=== PATIENT | female | born 1930 | race Caucasian/White ===

== ENCOUNTER 2016-08-15 11:03 | Inpatient (IN) | payer MEDICARE ==
[2016-08-16 16:14] VITALS: BMI 30.3
[2016-08-16 16:59] LABS: Basophils # (A) 0.1 k/uL (0-0.2); Basophils % (A) 2 %; CH 32.1; CHCM 30.9; Eosinophils # (A) 0.2 k/uL (0-0.7); Eosinophils % (A) 5 %; HCT 29.6 % (34.0-46.0); HDW 2.08; HGB 9.6 gm/dL (11.4-16.0); Luc # (Auto) 0.17; Luc % (Auto) 4; Lymphocytes # (A) 0.8 k/uL (1.0-4.8); Lymphocytes % (A) 20 %; MCH 33.8 pg (25.0-35.0); MCHC 32.5 g/dL (31.0-37.0); MCV 104.1 fL (80.0-100.0); Macrocytosis Slight; Monocytes # (A) 0.3 k/uL (0-1.0); Monocytes % (A) 8 %; Neutrophils # (A) 2.6 k/uL (1.3-7.7); Neutrophils % (A) 61 %; RBC 2.84 m/uL (3.80-5.40); RDW 11.9 % (11.5-15.5); WBC 4.2 k/uL (3.8-10.6)
[2016-08-16 17:16] LABS: Calcium 8.8 mg/dL (8.4-10.2); Potassium 4.5 mmol/L (3.5-5.1); Total Bilirubin 0.5 mg/dL (0.2-1.3)
--- NOTE | 2016-08-16 17:50 | US ---
EXAMINATION TYPE: US renals and bladder DATE OF EXAM: 08/16/2016 4:40 PM COMPARISON: US CLINICAL HISTORY: Renal failure acute. Renal failure EXAM MEASUREMENTS: Right Kidney: 9.6 x 4.1 x 3.5 cm Left Kidney: 9.6 x 4.8 x 4.3 cm Right Kidney: no hydronephrosis or masses seen at this time, inferior pole limited by overlying bowel gas Left Kidney: no hydronephrosis or masses seen at this time, limited by rib shadowing and overlying everette wel gas Bladder: not fully distended, vasquez catheter Bilateral Jets seen: no cortical medullary differentiation is maintained bilaterally. IMPRESSION: Exam is limited.
[2016-08-16] MEDS ORDERED: NITROGLYCERIN SL TABS 0.4 MG TAB SUBLINGUAL PRN (18:00)
[2016-08-16] MEDS: HEPARIN SODIUM,PORCINE 5,000 UNIT/ML 1 ML VIAL SQ SCH (18:19)
[2016-08-16] MEDS: SODIUM CHLORIDE 0.9% 1,000 ML IV SCH (18:19)
[2016-08-16] MEDS: MINOXIDIL 10 MG TAB PO SCH (20:35)
[2016-08-16] MEDS: cloNIDine HCL 0.1 MG TAB PO SCH (20:35)
[2016-08-16] MEDS: FAMOTIDINE 20 MG TAB PO SCH (20:36)
[2016-08-16] MEDS: traZODone HCL 50 MG TAB PO SCH (20:36)
[2016-08-16] MEDS: CARVEDILOL 6.25 MG TAB PO SCH (20:36)
[2016-08-16] MEDS: PRAVASTATIN SODIUM 20 MG TAB PO SCH (20:36)
[2016-08-17] MEDS: HEPARIN SODIUM,PORCINE 5,000 UNIT/ML 1 ML VIAL SQ SCH ×4 (01:31→22:58)
[2016-08-17] MEDS: LEVOTHYROXINE 75 MCG TAB PO SCH (06:03)
[2016-08-17] MEDS: SODIUM CHLORIDE 0.9% 1,000 ML IV SCH ×2 (06:04→18:04)
--- NOTE | 2016-08-17 08:14 | HP ---
DATE OF ADMISSION: CHIEF COMPLAINT: Acute onset of confusion and renal failure. HISTORY OF PRESENT ILLNESS: This 86-year-old white female was visiting her daughter in [place] and suddenly became confused and developed tremors of the upper extremities. They took her to the hospital in [facility] where she was found to have acute renal failure. She has had borderline elevation of her renal function in the past. There is no obvious etiology for this. Her renal function improved during her hospitalization, but she continued to have episodes of confusion although they were getting better too. She has had some occasional mild symptoms over the last year or so where she seemed to be confused. Her parents lived to be a very elderly age and there was no dementia. There is no history of renal failure. She does have a lot of trouble with severe hypertension, which has been difficult to control and she is on numerous medications but she has had no focal neurologic signs or symptoms. REVIEW OF SYSTEMS: She has no other symptoms including shortness of breath, abdominal pain, diarrhea, melena, hematochezia, vomiting, dysuria, hematuria, diabetes, etc. Past medical history, family history and personal and social histories are otherwise unremarkable and noncontributory. She does not smoke or drink. PHYSICAL EXAMINATION: Blood pressure 147/78 with a pulse of 85, respirations of 20. She is afebrile. GENERAL: She appeared to be well developed, well nourished, in no acute distress. Skin color is normal. Skin is warm and dry. Lymph nodes are not enlarged. Head, ears, eyes, nose, mouth, and throat were normal. Neck veins not distended. Thyroid is not enlarged. Chest is clear. Cardiac exam is normal. ABDOMEN: Soft, nontender. The left breast is absent and she has lymphedema of the left arm. Lower extremities are normal. Neurologically, she seems to be intact, but she is a little confused. IMPRESSION: 1. Acute onset of renal failure, improving, etiology unknown. 2. Delirium. 3. 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 4. Essential hypertension. 5. Status post left mastectomy. PLAN: 1. Bed rest. 2. IV fluids. 3. Rehydrate. 4. Neurology consult. 5. Carotid duplex imaging. 6. MRA. 7. Echocardiogram to assess her aortic valve, which has been replaced. 8. Physical therapy and discharge planning for rehab.
[2016-08-17] MEDS: CARVEDILOL 6.25 MG TAB PO SCH ×2 (08:30→17:39)
[2016-08-17] MEDS: hydrALAZINE HCL 50 MG TAB PO SCH (08:30)
[2016-08-17] MEDS: amLODIPine 5 MG TAB PO SCH (08:31)
[2016-08-17] MEDS: MULTIVITAMINS, THERA 1 EACH TAB PO SCH (08:32)
[2016-08-17] MEDS ORDERED: VALSARTAN 160 MG TAB PO SCH (09:00)
[2016-08-17] MEDS: BUMETANIDE 0.5 MG TABLET PO SCH (09:11)
[2016-08-17 10:16] LABS: Calcium 8.9 mg/dL (8.4-10.2); Potassium 4.6 mmol/L (3.5-5.1); Total Bilirubin 0.6 mg/dL (0.2-1.3); Total Protein 6.2 g/dL (6.3-8.2)
[2016-08-17 10:49] LABS: Appearance,Urine Cloudy (Clear); Bacteria,Urine Occasional /hpf; Bilirubin,Urine Negative (Negative); Glucose,Urine (UA) Negative (Negative); Ketones,Urine Negative (Negative); Leukocyte Esterase,Urine Large (Negative); Mucus,Urine Rare /hpf; Nitrite,Urine Negative (Negative); PH, Urine 5.5 (5.0-8.0); Particle Count 6309; Protein,Urine Trace (Negative); Squamous Epithelial Cell,Urine 12 /hpf (0-4); UA Billing (MACRO vs. MICRO) MICRO; Urobilinogen,Urine <2.0 mg/dL (<2.0); WBC,Urine 70 /hpf (0-5)
[2016-08-17 10:53] LABS: Cholesterol 118 mg/dL (<200); HDL Cholesterol 42 mg/dL (40-60); Triglycerides 108 mg/dL (<150)
--- NOTE | 2016-08-17 11:23 | US ---
EXAMINATION TYPE: US carotid duplex BILAT DATE OF EXAM: 08/17/2016 11:04 AM COMPARISON: NONE CLINICAL HISTORY: Stenosis. confusion EXAM MEASUREMENTS: RIGHT: Peak Systolic Velocity (PSV) cm/sec ----- Right CCA: 107.5 ----- Right ICA: 124.2 ----- Right ECA: 228.3 ICA/CCA ratio: 1.2 RIGHT: End Diastole cm/sec ----- Right CCA: 14.4 ----- Right ICA: 19.2 ----- Right ECA: 0.0 LEFT: Peak Systolic Velocity (PSV) cm/sec ----- Left CCA: 94.3 ----- Left ICA: 192.1 ----- Left ECA: 279.0 ICA/CCA ratio: 2.0 LEFT: End Diastole cm/sec ----- Left CCA: 12.8 ----- Left ICA: 30.4 ----- Left ECA: 0.0 VERTEBRALS (direction of flow): Right Vertebral: Antegrade Left Vertebral: Antegrade Extensive shadowing plaque causing elevated velocities in the right ECA and left ECA & ICA. IMPRESSION: 1. Stenosis of the left carotid most notably at the left carotid bulb and proximal internal carotid a rtery of 50-69% 2. Stenosis at the right carotid bulb 50-69%, to a lesser degree than the left carotid system.
--- NOTE | 2016-08-17 14:22 | PN ---
CHIEF COMPLAINT: Renal failure and mental status changes. HISTORY OF PRESENT ILLNESS: This lady is stable since yesterday. She is not complaining of anything new. PHYSICAL EXAM: She is slightly pale. HEENT: Normal. The chest is clear. Cardiac exam is normal. IMPRESSION: 1. Mental status change. 2. Delirium. 3. 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 4. Hypertension. 5. Renal failure, resolving. PLAN: 1. Carotid duplex imaging. 2. Neurology consult. 3. MRI. 4. MRA. 5. Await neurology evaluation.
--- NOTE | 2016-08-17 14:38 | CONS ---
DATE OF CONSULTATION: August 17, 2016. REASON FOR CONSULTATION: Renal failure. HISTORY OF PRESENT ILLNESS: Patient is an 86-year-old female who was transferred from the hospital in [facility]. Patient lives in [place]. She was visiting her daughter in [place] and was noted to have weakness and jerky movements of her upper extremities. The patient was also more confused according to her daughter. She was taken to the hospital where she was noted to have significant renal failure with creatinine as high as about 6 mg/dL according to the daughter. The patient was maintained on IV fluids and her creatinine is now at about 3 mg/dL. There is no prior history of kidney diseases. Her creatinine is actually improved to 2.6 today. Patient denied the use of any nonsteroidal anti-inflammatory agents prior to admission. She did not have any diarrhea, nausea and vomiting. She however did have decreased intake. Patient also has hypertension, which has been uncontrolled. She is currently maintained on five antihypertensive medications including angiotensin receptor blockers, 2 alpha blockers in the form of hydralazine and minoxidil along with clonidine and Coreg and Norvasc. 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 She does have a history of coronary artery disease, status post coronary artery bypass surgery. PAST MEDICAL HISTORY: Hypertension, coronary artery disease, osteoarthritis. SOCIAL HISTORY: Negative for smoking, drug abuse or alcohol abuse. Medications at home included: Diovan, hydralazine, minoxidil, Norvasc, clonidine, Coreg, Desyrel, Synthroid, Bumex, Pravachol, multivitamins. REVIEW OF SYSTEMS: As per HPI. Other systems negative. On examination, the patient is currently comfortable, awake, alert, oriented x3. She is not in any acute distress. Blood pressure is 133/53, heart rate 75 per minute. She is afebrile. Examination of the heart S1 and S2. Examination of the lungs: Bilateral breath sounds are heard. Abdomen is soft, nontender. Examination of lower extremities shows no evidence of edema. [employer] exam is grossly intact. Patient is moving all 4 extremities. No jerky movements are noted. Labs show sodium 137, potassium 4.6, chloride 110, CO2 is 18, BUN 66, serum creatinine 2.6. Hemoglobin 9.6 g/dL. ASSESSMENT: 1. Acute kidney injury; appears to be most likely acute tubular necrosis, currently significantly improved with serum creatinine down from 6 when patient was initially admitted to the hospital in [facility]. It is now down to 2.61. Patient has been maintained on IV fluids. She, however, continues with Diovan, the dose of which I decreased to about 80 mg daily. Since her renal function continues to improve, we may continue with the Diovan. A urinalysis has been ordered and an ultrasound was done which showed no evidence of obstructive uropathy. 2. Hypertension, currently controlled; however, the patient is maintained on 6 blood pressure medications prior to admission. She may have underlying resistant hypertension and work-up will be done for other secondary causes. There is no history of hypokalemia. He is maintained on 2 alpha blockers in the form of hydralazine and minoxidil and hopefully we can discontinue the hydralazine down the road since it is only at 50 mg daily. 3. Myoclonic jerks secondary to renal failure/uremia currently resolved with improving renal function. PLAN: Continue IV fluids. May continue Diovan for now. Follow up as outpatient. Will work-up for secondary causes of hypertension as outpatient.
[2016-08-17] MEDS: LEVOFLOXACIN 250 MG TAB PO SCH (16:17)
[2016-08-17] MEDS ORDERED: FUROSEMIDE 10 MG/ML 10 ML VIAL IV STA (18:00)
[2016-08-17] MEDS ORDERED: ALBUTEROL NEBULIZED 2.5 MG/3 ML INHALATION PRN (18:01)
--- NOTE | 2016-08-17 18:21 | P.CNNES ---
History of Present Illness Consult date: 08/17/16 Reason for Consult: Patient being evaluated for acute delirium and confusion. History of Present Illness: This patient is a pleasant 86-year-old right-handed white female who was visiting her daughter in [place]. Apparently yesterday she was noted by her daughter is having change in mentation as well as jerky movements of the upper extremities. She was taken to a hospital in [place] where she was evaluated. Apparently her laboratory testing revealed her to have evidence of acute renal failure. Her serum creatinine was high at 6.0. She was started on some fluids and then was discharged and was admitted to [facility] yesterday for further ongoing management and treatment. The patient was admitted through the emergency room. She did undergo a renal ultrasound which was nondiagnostic. No evidence of renal stones or hydronephrosis. Patient had repeat laboratory testing today and shows that her creatinine is much improved at 2.6 today. Nephrology has been consulted for further evaluation and treatment. Patient does have a history of essential hypertension and has been on 2 antihypertensive medications. According to the patient blood pressure has been up and down. She does have a history of coronary artery disease and has undergone coronary artery bypass surgery in the past as well. The patient denies any previous history of seizures or head trauma. Her recent jerking movements were very isolated and she has not had that since admission to the hospital. According to the patient she has noted some shakiness in her hands which seems to come and go. This is been present for the last few weeks. Her primary care physician Dr. White has admitted her and is now ordered for MRI of the brain and MRA for further evaluation. Patient does have symptoms of mild delirium which seems to be improving. This may be more related to a diffuse metabolic encephalopathy from renal failure. We will await her neurodiagnostic imaging results and we'll give further recommendations at that time. Her overall prognosis at this time remains guarded. Review of Systems Constitutional: Denies chills, Denies fever Eyes: denies blurred vision, denies pain Ears, nose, mouth and throat: Denies headache, Denies sore throat Cardiovascular: Denies chest pain, Denies shortness of breath Respiratory: Denies cough Gastrointestinal: Denies abdominal pain, Denies diarrhea, Denies nausea, Denies vomiting Genitourinary: Denies dysuria, Denies hematuria Musculoskeletal: Denies myalgias Integumentary: Denies pruritus, Denies rash Neurological: Reports change in mentation, Reports change in speech, Reports convulsions, Denies numbness, Denies weakness Psychiatric: Reports confusion, Denies anxiety, Denies depression Endocrine: Denies fatigue, Denies weight change Past Medical History Past Medical History: Cancer, Heart Failure, Hyperlipidemia, Hypertension Additional Past Medical History / Comment(s): 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 HYPOTHYROID History of Any Multi-Drug Resistant Organisms: None Reported Past Surgical History: Adenoidectomy, Appendectomy, Bladder Surgery, Cholecystectomy, Coronary Bypass/CABG, Hysterectomy, Tonsillectomy Additional Past Surgical History / Comment(s): AORTIC VALVE REPLACEMENT 2014 Past Anesthesia/Blood Transfusion Reactions: Postoperative Nausea & Vomiting ( PONV) Past Psychological History: No Psychological Hx Reported Smoking Status: Never smoker - Past Family History Sister(s) Family Medical History: Cancer Additional Family Medical History / Comment(s): MANY SIBLINGS HAVE AUTOIMMUNE DISORDERS(LUPUS)AND THYROID Medications and Allergies Home Medications Medication Instructions Recorded Confirmed Type Bumetanide [BUMEX] 0.5 mg PO DAILY 08/16/16 08/16/16 History Carvedilol [Coreg] 6.25 mg PO BID 08/16/16 08/16/16 History Levothyroxine Sodium [Synthroid] 150 mcg PO DAILY 08/16/16 08/16/16 History Minoxidil [Loniten] 10 mg PO HS 08/16/16 08/16/16 History Multivitamins, Thera [Multivitamin 1 tab PO DAILY 08/16/16 08/16/16 History (formulary)] Nitroglycerin Sl Tabs [Nitrostat] 0.4 mg SUBLINGUAL Q5M PRN 08/16/16 08/16/16 History Pravastatin Sodium [Pravachol] 10 mg PO HS 08/16/16 08/16/16 History Valsartan [Diovan] 320 mg PO DAILY 08/16/16 08/16/16 History Zopiclone 7.5 mg PO HS 08/16/16 08/16/16 History amLODIPine BESYLATE [Norvasc] 5 mg PO DAILY 08/16/16 08/16/16 History cloNIDine HCL [Catapres] 0.3 mg PO HS 08/16/16 08/16/16 History hydrALAZINE HCL [Apresoline] 100 mg PO BID 08/16/16 08/16/16 History traZODone HCL [Desyrel] 50 mg PO HS 08/16/16 08/16/16 History Allergies Allergy/AdvReac Type Severity Reaction Status Date / Time hydromorphone [From Dilaudid] AdvReac Nausea & Verified 08/16/16 16:25 Vomiting Physical Examination - Vital Signs Vital Signs: Vital Signs Temp Pulse Resp BP Pulse Ox 08/17/16 15:00 97.0 F L 79 20 120/48 96 08/17/16 07:00 97.9 F 75 20 133/53 95 08/16/16 23:00 97.1 F L 83 18 140/54 96 08/16/16 15:37 97.8 F 75 16 134/51 94 L Intake and Output 08/17/16 08/17/16 08/17/16 06:59 14:59 22:59 Intake Total 360 Balance 360 Intake: Oral 360 Other: Voiding Method Toilet Toilet Bedside Commode # Voids 2 2 # Bowel Movements 0 0 - Constitutional General appearance: average body habitus, cooperative - EENT EENT: PERRL, mucous membranes moist - Respiratory Respiratory: lungs clear, normal breath sounds - Cardiovascular Cardiovascular: regular rate, normal S1, normal S2 Extremities: no peripheral edema bilaterally - Gastrointestinal Gastrointestinal: normoactive bowel sounds - Integumentary Integumentary: normal - Neurologic Detailed sensory examination: intact Reflex and gait examination: intact Reflexes: 1+: ankle, bicep, knee, tricep - Musculoskeletal Musculoskeletal: no pain - Psychiatric Psychiatric: mood/affect appropriate, cooperative Results - Laboratory Findings CBC and BMP: 08/16/16 15:52 08/17/16 08:40 Abnormal Lab Findings: Abnormal Labs 08/16/16 08/16/16 08/17/16 15:52 15:52 08:40 RBC 2.84 L Hgb 9.6 L Hct 29.6 L MCV 104.1 H Plt Count 102 L Lymphocytes # 0.8 L Sodium 135 L Chloride 110 H Carbon Dioxide 20 L 18 L BUN 71 H 66 H Creatinine 3.35 H 2.61 H Glucose 103 H 100 H Alkaline Phosphatase 36 L 34 L Total Protein 6.0 L 6.2 L Urine Appearance Urine Protein Ur Leukocyte Esterase Urine WBC Ur Squamous Epith Cells Urine Bacteria Urine Mucus 08/17/16 09:20 RBC Hgb Hct MCV Plt Count Lymphocytes # Sodium Chloride Carbon Dioxide BUN Creatinine Glucose Alkaline Phosphatase Total Protein Urine Appearance Cloudy H Urine Protein Trace H Ur Leukocyte Esterase Large H Urine WBC 70 H Ur Squamous Epith Cells 12 H Urine Bacteria Occasional H Urine Mucus Rare H Assessment and Plan (1) Acute encephalopathy Status: Acute Code(s): G93.40 - ENCEPHALOPATHY, UNSPECIFIED (2) Delirium Status: Acute Code(s): R41.0 - DISORIENTATION, UNSPECIFIED (3) Essential hypertension Status: Acute Code(s): I10 - ESSENTIAL (PRIMARY) HYPERTENSION (4) Acute renal failure Status: Acute Code(s): N17.9 - ACUTE KIDNEY FAILURE, UNSPECIFIED Plan: This patient is a pleasant 86-year-old female being evaluated for recent episode of acute renal failure and confusion. Patient was visiting her daughter in [place] and had sudden onset of jerky movements of her upper extremities. she was taken to the local hospital in [place] and was seen in the ER. She was found to have evidence of acute renal failure with a serum creatinine of 6.0. She was advised to follow-up here locally if she lives in [place]. She was subsequently admitted to hospital yesterday for treatment of acute renal failure. She did undergo a computed tomography scan of the brain in [place] which revealed only diffuse ischemic changes. No evidence of acute stroke or hemorrhage. Her blood pressure has been elevated and she has clear evidence of a diffuse metabolic encephalopathy due to renal failure. Repeat serum creatinine today shows an improvement with today's total creatinine of 2.61. Patient is being scheduled for further testing. We would recommend a routine EEG to rule out any possibility of seizure disorder for this patient. Her jerky movements are more likely myoclonia secondary to her renal failure. We will obtain a routine EEG performed further assessment. Her overall prognosis at this time remains guarded. Time with Patient: Greater than 30
--- NOTE | 2016-08-17 19:29 | XR ---
EXAMINATION TYPE: XR chest 2V DATE OF EXAM: 08/17/2016 7:00 PM COMPARISON: Prior chest x-ray 17 November 2009 HISTORY: Shortness of breath and wheezing TECHNIQUE: Frontal and lateral views of the chest are obtained. FINDINGS: There is some blunting of the posterior costophrenic angles. Prominent lung volumes sugges t underlying COPD. The patient is rotated. Patient is post median sternotomy and the heart is enlarge d. Interstitium and central vascularity are prominent. No evident pneumothorax. IMPRESSION: Correlate for congestive heart failure. Follow-up is recommended.
[2016-08-17] MEDS: ALBUTEROL NEBULIZED 2.5 MG/3 ML INHALATION SCH (19:41)
--- NOTE | 2016-08-17 20:51 | PN ---
DATE OF SERVICE: 08/17/2016 CHIEF COMPLAINT: Congestion and shortness of breath. HISTORY OF PRESENT ILLNESS: This lady developed some shortness of breath this afternoon and she is slightly congested. She has had no fever or chills. On physical examination she has occasional rhonchi and rales scattered throughout. IMPRESSION: Fluid overload? PLAN: 1. Decrease IV to keep open. 2. Lasix 80 mg IV push x1. 3. Updrafts with albuterol. 4. Chest x-ray.
[2016-08-17] MEDS: cloNIDine HCL 0.1 MG TAB PO SCH (22:00)
[2016-08-17] MEDS: MINOXIDIL 10 MG TAB PO SCH (22:00)
[2016-08-17] MEDS: FAMOTIDINE 20 MG TAB PO SCH (22:00)
[2016-08-17] MEDS: traZODone HCL 50 MG TAB PO SCH (22:01)
[2016-08-17] MEDS: PRAVASTATIN SODIUM 20 MG TAB PO SCH (22:57)
[2016-08-18] MEDS: LEVOTHYROXINE 75 MCG TAB PO SCH (06:34)
[2016-08-18] MEDS: CARVEDILOL 6.25 MG TAB PO SCH ×2 (08:02→17:55)
[2016-08-18] MEDS: HEPARIN SODIUM,PORCINE 5,000 UNIT/ML 1 ML VIAL SQ SCH ×3 (08:02→23:31)
[2016-08-18] MEDS: hydrALAZINE HCL 50 MG TAB PO SCH (08:02)
[2016-08-18] MEDS: VALSARTAN 80 MG TAB PO SCH (08:03)
[2016-08-18] MEDS: amLODIPine 5 MG TAB PO SCH (08:03)
[2016-08-18] MEDS: BUMETANIDE 0.5 MG TABLET PO SCH (08:03)
[2016-08-18] MEDS: MULTIVITAMINS, THERA 1 EACH TAB PO SCH (08:03)
[2016-08-18] MEDS ORDERED: NAPROXEN 250 MG TAB PO PRN (08:45)
[2016-08-18] MEDS: ALBUTEROL NEBULIZED 2.5 MG/3 ML INHALATION SCH ×4 (09:03→20:37)
[2016-08-18 09:14] LABS: Calcium 8.9 mg/dL (8.4-10.2); Potassium 3.7 mmol/L (3.5-5.1); Total Bilirubin 0.6 mg/dL (0.2-1.3); Total Protein 6.4 g/dL (6.3-8.2)
--- NOTE | 2016-08-18 10:04 | P.PN ---
Subjective Patient is seen in follow-up for acute kidney injury. Her creatinine in December 2014 was 0.8. He was recently elevated at 6 was she was in [place] and was transferred to [facility]. Her creatinine here was 3.35 and is down to 2.4 today. She was initially on IV fluids but became short of breath yesterday and fluids were discontinued. She did receive a dose of Lasix 80 mg IV once yesterday and is now maintained on Bumex 0.5 mg daily. She denies chest pain or shortness of breath. Oral intake is fair but improving. Admits to good urine output. Denies chest pain or shortness of breath. Vital signs are stable. General: The patient appeared well nourished and normally developed. HEENT: Head exam is unremarkable. Neck is without jugular venous distension. LUNGS: Lungs are clear to auscultation and percussion. Breath sounds decreased. HEART: Rate and Rhythm are regular. First and second heart sounds normal. No murmurs, rubs or gallops. ABDOMEN: Abdominal exam reveals normal bowel sounds. Non-tender and non- distended. No evidence of peritonitis. EXTREMITITES: No clubbing, cyanosis, or edema. Objective - Vital Signs Vital signs: Vital Signs Temp 98.5 F 08/18/16 07:00 Pulse 84 08/18/16 09:13 Resp 16 08/18/16 07:00 BP 160/69 08/18/16 07:00 Pulse Ox 94 L 08/18/16 07:00 Intake & Output 08/17/16 08/18/16 08/18/16 18:59 06:59 18:59 Intake Total 360 Balance 360 Weight 75.189 kg Intake: Oral 360 Other: Voiding Method Toilet Toilet Bedside Commode Bedside Commode # Voids 2 5 # Bowel Movements 0 1 - Labs CBC & Chem 7: 08/16/16 15:52 08/18/16 08:05 Labs: Abnormal Lab Results - Last 24 Hours (Table) 08/17/16 08/17/16 08/18/16 Range/Units 08:40 09:20 08:05 Chloride 110 H (98-107) mmol/L Carbon Dioxide 18 L 20 L (22-30) mmol/L BUN 66 H 51 H (7-17) mg/dL Creatinine 2.61 H 2.24 H (0.52-1.04) mg/dL Glucose 100 H 124 H (74-99) mg/dL Alkaline Phosphatase 34 L (38-126) U/L Total Protein 6.2 L (6.3-8.2) g/dL Urine Appearance Cloudy H (Clear) Urine Protein Trace H (Negative) Ur Leukocyte Esterase Large H (Negative) Urine WBC 70 H (0-5) /hpf Ur Squamous Epith Cells 12 H (0-4) /hpf Urine Bacteria Occasional H (None) /hpf Urine Mucus Rare H (None) /hpf Microbiology - Last 24 Hours (Table) 08/17/16 09:20 Urine Culture - Preliminary Urine,Clean Catch Assessment and Plan Plan: Assessment: #1. Nonoliguric acute kidney injury mostly prerenal in nature related to poor oral intake. Improving. Creatinine on the 2.24 today. Urinalysis appears to be quite benign. No evidence of hydronephrosis noted on renal ultrasound. #2. Metabolic acidosis secondary to acute kidney injury and IV fluids. Improved. #3. Hypertension. Patient maintained on multiple antihypertensives as an outpatient. #4. Encephalopathy related to uremia. Resolved. Plan: Fluids have been discontinued. Continue current antihypertensives. Wean hydralazine once blood pressure stabilizes. Repeat electrolytes in the morning. If renal function worsens, will need to back off on diuretics.
--- NOTE | 2016-08-18 11:59 | MR ---
EXAMINATION TYPE: MR angio head wo con DATE OF EXAM: 08/18/2016 11:46 AM COMPARISON: NONE HISTORY: Headaches, confusion TECHNIQUE: Time of flight images focusing on the [place] were performed without contrast. FINDINGS: Internal carotid arteries, vertebrobasilar system are patent. There is no evident aneurysm. No vascular malformation or significant vasculitic change. Ophthalmic arteries are patent. No eviden t dissection. IMPRESSION: Normal [place] MRA
--- NOTE | 2016-08-18 12:08 | MR ---
MR brain without contrast HISTORY: Confusion, headache Multiplanar multisequence imaging through the brain and correlated to prior exam 08 January 2015 There is no restricted diffusion to suggest subacute ischemia. Cortical atrophy is again noted. The c orpus callosum, pituitary, cervical medullary junction, cerebellopontine angles are stable. Periventr icular white matter hyperintensity on inversion recovery and T2-weighted sequences shows a similar ap pearance, scattered and confluent areas of hyperintensity are present bilaterally. There is no hemorr lexx or hydrocephalus. The orbits show symmetric appearance. Mild inflammatory change present within the maxillary sinus on the right, ethmoid air cells. Mild inflammatory change suspected in the mastoi d air cells on the right. There are normal vascular flow voids. IMPRESSION: Essentially stable exam. Age-related changes of atrophy and probable chronic small vessel ischemia.
--- NOTE | 2016-08-18 13:19 | PN ---
CHIEF COMPLAINT: Renal failure and mental status changes. HISTORY OF PRESENT ILLNESS: This lady is doing better today. Breathing is improved. This is probably in response to the Lasix. She is also getting updrafts. MRI and MRA have been ordered. She has been seen by Neurology. PHYSICAL EXAM: She seems to be awake and alert and fairly well oriented. Chest is clear. Cardiac exam is unremarkable with her usual murmur. ABDOMEN: Soft, nontender. IMPRESSION: 1. Acute renal failure, resolving. 2. Congestive heart failure, new onset. 3. Delirium. 4. Mild dementia. 5. Hypertension. PLAN: 1. Continue with updrafts. 2. Continue with workup and await pending studies.
[2016-08-18] MEDS: LEVOFLOXACIN 250 MG TAB PO SCH (15:11)
[2016-08-18] MEDS: PRAVASTATIN SODIUM 20 MG TAB PO SCH (20:22)
[2016-08-18] MEDS: MINOXIDIL 10 MG TAB PO SCH (20:22)
[2016-08-18] MEDS: cloNIDine HCL 0.1 MG TAB PO SCH (20:22)
[2016-08-18] MEDS: FAMOTIDINE 20 MG TAB PO SCH (20:22)
[2016-08-18] MEDS: traZODone HCL 50 MG TAB PO SCH (20:23)
[2016-08-19] MEDS: LEVOTHYROXINE 75 MCG TAB PO SCH (06:35)
[2016-08-19] MEDS: HEPARIN SODIUM,PORCINE 5,000 UNIT/ML 1 ML VIAL SQ SCH ×3 (08:03→23:26)
[2016-08-19] MEDS: CARVEDILOL 6.25 MG TAB PO SCH ×2 (08:03→18:15)
[2016-08-19] MEDS: BUMETANIDE 0.5 MG TABLET PO SCH (08:04)
[2016-08-19] MEDS: hydrALAZINE HCL 50 MG TAB PO SCH (08:04)
[2016-08-19] MEDS: VALSARTAN 80 MG TAB PO SCH (08:04)
[2016-08-19] MEDS: amLODIPine 5 MG TAB PO SCH (08:04)
[2016-08-19] MEDS: MULTIVITAMINS, THERA 1 EACH TAB PO SCH (08:05)
--- NOTE | 2016-08-19 09:23 | P.PN ---
Subjective Patient is seen in follow-up for acute kidney injury. Her creatinine in December 2014 was 0.8. He was recently elevated at 6 was she was in [place] and was transferred to [facility]. Her creatinine here was 3.35 and is down to 2.24 as of yesterday. She was initially on IV fluids but became short of breath Michele night and fluids were discontinued. She did receive a dose of Lasix 80 mg IV once and is now maintained on Bumex 0.5 mg daily. She denies chest pain or shortness of breath. Oral intake is fair but improving. Admits to good urine output. Denies chest pain or shortness of breath. Her blood pressures have been quite labile with systolic blood pressure ranging from 111-170. Vital signs are stable. General: The patient appeared well nourished and normally developed. HEENT: Head exam is unremarkable. Neck is without jugular venous distension. LUNGS: Lungs are clear to auscultation and percussion. Breath sounds decreased. HEART: Rate and Rhythm are regular. First and second heart sounds normal. No murmurs, rubs or gallops. ABDOMEN: Abdominal exam reveals normal bowel sounds. Non-tender and non- distended. No evidence of peritonitis. EXTREMITITES: No clubbing, cyanosis, or edema. Objective - Vital Signs Vital signs: Vital Signs Temp 98.6 F 08/19/16 07:00 Pulse 89 08/19/16 07:00 Resp 20 08/19/16 07:00 BP 171/72 08/19/16 07:00 Pulse Ox 96 08/19/16 07:00 Intake & Output 08/18/16 08/19/16 08/19/16 18:59 06:59 18:59 Intake Total 300 Balance 300 Weight 75.189 kg 75.5 kg Intake: Oral 300 Other: Voiding Method Toilet Toilet Bedside Commode Bedside Commode # Voids 3 2 # Bowel Movements 1 - Labs CBC & Chem 7: 08/16/16 15:52 08/18/16 08:05 Labs: Microbiology - Last 24 Hours (Table) 08/17/16 09:20 Urine Culture - Preliminary Urine,Clean Catch Group D Enterococcus Assessment and Plan Plan: Assessment: #1. Nonoliguric acute kidney injury mostly prerenal in nature related to poor oral intake. Improving. Creatinine 2.24 as of yesterday. Urinalysis appears to be quite benign. No evidence of hydronephrosis noted on renal ultrasound. #2. Metabolic acidosis secondary to acute kidney injury and IV fluids. Improved. #3. Hypertension. Patient maintained on multiple antihypertensives as an outpatient. #4. Encephalopathy related to uremia. Resolved. Plan: Fluids have been discontinued. Encourage oral intake. Continue current antihypertensives. Wean hydralazine once blood pressure stabilizes. Follow-up renin and aldosterone levels. Repeat electrolytes in the morning. If renal function worsens, will need to back off on diuretics.
[2016-08-19] MEDS: ALBUTEROL NEBULIZED 2.5 MG/3 ML INHALATION SCH ×4 (09:49→19:45)
[2016-08-19 10:23] LABS: Calcium 8.9 mg/dL (8.4-10.2); Potassium 3.9 mmol/L (3.5-5.1); Total Bilirubin 0.5 mg/dL (0.2-1.3); Total Protein 5.7 g/dL (6.3-8.2)
[2016-08-19 11:22] LABS: Basophils % (A) 1 %; CH 32.9; CHCM 32.8; Eosinophils # (A) 0.2 k/uL (0-0.7); Eosinophils % (A) 5 %; HCT 25.8 % (34.0-46.0); HDW 2.05; HGB 8.4 gm/dL (11.4-16.0); Luc # (Auto) 0.13; Luc % (Auto) 3; Lymphocytes # (A) 0.7 k/uL (1.0-4.8); Lymphocytes % (A) 19 %; MCH 32.8 pg (25.0-35.0); MCHC 32.6 g/dL (31.0-37.0); MCV 100.5 fL (80.0-100.0); Mean Platelet Volume 8.9; Monocytes # (A) 0.2 k/uL (0-1.0); Monocytes % (A) 6 %; Neutrophils # (A) 2.4 k/uL (1.3-7.7); Neutrophils % (A) 66 %; RBC 2.57 m/uL (3.80-5.40); RDW 12.5 % (11.5-15.5); WBC 3.7 k/uL (3.8-10.6); WBC (Perox) 3.68
[2016-08-19 11:40] LABS: Manual Review Performed
--- NOTE | 2016-08-19 13:15 | EEG ---
DATE OF SERVICE: 08/18/2016 INDICATIONS FOR EXAMINATION: This patient is an 86 -year-old female being evaluated for acute renal failure and myoclonus. The patient also with symptoms of mild confusion. AGE: 86Y EEG FINDINGS: A routine 21 channel awake digital EEG recording was accomplished utilizing the 10-20 international system with bipolar and referential montages. The background activity in the most alert resting state consists of low to medium amplitude fairly well developed and well sustained 6 Hz activity over the posterior head regions. This posterior rhythm attenuates to eye opening. There is a small amount of low amplitude 18-20 Hz beta activity seen maximally over the anterior head regions. Muscle and movement artifact was observed on several occasions during the tracing. Hyperventilation was not performed. Photic stimulation at flash frequencies of 2-30 Hz produced a good symmetrical occipital driving response. No epileptiform discharges were seen. IMPRESSION: This EEG is moderately abnormal in a diffuse fashion due to slowing of the EEG background. The EEG failed to reveal any focal, lateralized or epileptiform abnormalities. If clinically indicated, a follow-up EEG is recommended. Clinical correlation is recommended.
[2016-08-19 13:17] LABS: % Iron Saturation 31.5 % (20-50)
[2016-08-19] MEDS: FERROUS SULFATE 325 MG TAB PO SCH (13:22)
--- NOTE | 2016-08-19 14:53 | P.PN ---
Subjective This patient is a 86-year-old female who was admitted hospital for further treatment of acute renal failure and myoclonus. Patient was visiting her daughter in [place] when she developed some symptoms of myoclonus and confusion. She was taken to a local hospital and was found to have evidence of acute renal failure with elevated serum creatinine. She was subsequently admitted to the hospital for further management. She has been seen by nephrology who is monitoring her acute kidney injury. Her serum creatinine today is come down to 2.12. She did undergo routine EEG yesterday which was reviewed and reveals only mild slowing with no evidence of any epileptiform discharges. She also was sent for MRI of the brain and MRA yesterday as she is shown signs of mild memory lapses and deterioration. MRI of the brain reveals age-related atrophy and chronic small vessel ischemic changes. MRA of the brain was reported normal. We reviewed the results of all of her neurodiagnostic test today with the patient in detail. She is resting comfortably and does seem to be much more awake and alert today. She is following all commands. We will need to recheck her electrolytes tomorrow morning. We reviewed the EEG results with the patient today and she was happy of these results. Overall she is making good progress. She may have the beginning of mild dementia which may be followed up in the outpatient clinic. Her overall prognosis at this time remains guarded. Objective - Vital Signs Vital signs: Vital Signs Temp 98.6 F 08/19/16 07:00 Pulse 78 08/19/16 10:05 Resp 20 08/19/16 08:00 BP 171/72 08/19/16 07:00 Pulse Ox 96 08/19/16 07:00 Intake & Output 08/18/16 08/19/16 08/19/16 18:59 06:59 18:59 Intake Total 300 120 Balance 300 120 Weight 75.189 kg 75.5 kg 75.5 kg Intake: Oral 300 120 Other: Voiding Method Toilet Toilet Toilet Bedside Commode Bedside Commode Bedside Commode # Voids 3 2 2 # Bowel Movements 1 - Exam Physical examination: PHYSICAL EXAMINATION: Patient is resting comfortably in bed. VITAL SIGNS: Blood pressure is [171/72]. Heart rate is [89]. Respiration is [20] . Temperature is [98.7]. HEENT: Head is atraumatic, neck is supple, there were no carotid bruits. CHEST: Lungs are clear to auscultation and percussion. CARDIAC: S1, S2 normal rate and rhythm. There is no murmur. ABDOMEN: Soft and nontender. Bowel sounds are present. EXTREMITIES: There is no pedal edema. Peripheral pulses are present. Neurological examination: Patient has a nonfocal neurological examination today. - Labs CBC & Chem 7: 08/19/16 08:45 08/19/16 08:45 Labs: Abnormal Lab Results - Last 24 Hours (Table) 08/19/16 08/19/16 08/19/16 Range/Units 08:45 08:45 08:45 WBC 3.7 L (3.8-10.6) k/uL RBC 2.57 L (3.80-5.40) m/uL Hgb 8.4 L (11.4-16.0) gm/dL Hct 25.8 L (34.0-46.0) % MCV 100.5 H (80.0-100.0) fL Plt Count 97 L (150-450) k/uL Lymphocytes # 0.7 L (1.0-4.8) k/uL Carbon Dioxide 21 L (22-30) mmol/L BUN 42 H (7-17) mg/dL Creatinine 2.12 H (0.52-1.04) mg/dL Glucose 160 H (74-99) mg/dL TIBC 254 L (265-497) ug/dL Ferritin 283 H (11-264) ng/mL Alkaline Phosphatase 35 L (38-126) U/L Total Protein 5.7 L (6.3-8.2) g/dL Albumin 3.3 L (3.5-5.0) g/dL Microbiology - Last 24 Hours (Table) 08/17/16 09:20 Urine Culture - Final Urine,Clean Catch Enterococcus faecalis Assessment and Plan (1) Acute encephalopathy Status: Acute Code(s): G93.40 - ENCEPHALOPATHY, UNSPECIFIED (2) Delirium Status: Acute Code(s): R41.0 - DISORIENTATION, UNSPECIFIED (3) Essential hypertension Status: Acute Code(s): I10 - ESSENTIAL (PRIMARY) HYPERTENSION (4) Acute renal failure Status: Acute Code(s): N17.9 - ACUTE KIDNEY FAILURE, UNSPECIFIED Plan: This patient is a pleasant 86-year-old female initially admitted to hospital for acute kidney injury. She had a very elevated serum creatinine and had developed some mild clonus. She underwent a routine EEG yesterday which was reviewed. EEG reveals mild slowing with no epileptiform discharges. She was sent for MRI/MRA of the brain today the results which are noted above. MRI fails to reveal any evidence of acute stroke. Patient is doing better today in terms of her mental status. We reviewed the EEG results with the patient today. At this time no evidence of underlying seizure focus. Her serum creatinine today is 2.12 and is slowly improving. This patient likely has a diffuse metabolic encephalopathy which is gradually improving. We will continue close neurological follow-up with the patient. All of the test results were discussed today with the patient in detail. Her overall prognosis at this time remains guarded.
[2016-08-19] MEDS: LEVOFLOXACIN 250 MG TAB PO SCH (16:17)
--- NOTE | 2016-08-19 20:06 | PN ---
DATE OF SERVICE: 08/19/2016 CHIEF COMPLAINT: Renal failure and delirium. HISTORY OF PRESENT ILLNESS: This lady is doing better. This lady is feeling much better and seems to be a little bit more alert. Renal function continues to improve. Hemoglobin has dropped, however. There is no sign of bleeding. PHYSICAL EXAMINATION: CHEST: Clear. The cardiac exam is normal. ABDOMEN: Soft, nontender. IMPRESSION: 1. Delirium. 2. Renal failure. 3. Dropping hemoglobin. PLAN: 1. Progress activity and diet. 2. Work on discharge planning. 3. Work-up and follow anemia.
[2016-08-19] MEDS: PRAVASTATIN SODIUM 20 MG TAB PO SCH (20:31)
[2016-08-19] MEDS: FAMOTIDINE 20 MG TAB PO SCH (20:31)
[2016-08-19] MEDS: MINOXIDIL 10 MG TAB PO SCH (20:31)
[2016-08-19] MEDS: cloNIDine HCL 0.1 MG TAB PO SCH (20:31)
[2016-08-19] MEDS: traZODone HCL 50 MG TAB PO SCH (21:57)
[2016-08-20] MEDS: LEVOTHYROXINE 75 MCG TAB PO SCH (06:20)
[2016-08-20] MEDS: VALSARTAN 80 MG TAB PO SCH (08:19)
[2016-08-20] MEDS: HEPARIN SODIUM,PORCINE 5,000 UNIT/ML 1 ML VIAL SQ SCH ×3 (08:19→23:14)
[2016-08-20] MEDS: BUMETANIDE 0.5 MG TABLET PO SCH (08:20)
[2016-08-20] MEDS: CARVEDILOL 6.25 MG TAB PO SCH ×2 (08:20→17:34)
[2016-08-20] MEDS: hydrALAZINE HCL 50 MG TAB PO SCH (08:20)
[2016-08-20] MEDS: amLODIPine 5 MG TAB PO SCH (08:21)
[2016-08-20] MEDS: MULTIVITAMINS, THERA 1 EACH TAB PO SCH (08:21)
[2016-08-20] MEDS: ZOPICLONE PO SCH ×3 (08:22→10:08)
[2016-08-20] MEDS: ALBUTEROL NEBULIZED 2.5 MG/3 ML INHALATION SCH ×4 (08:26→23:44)
[2016-08-20 08:44] LABS: Calcium 8.5 mg/dL (8.4-10.2)
[2016-08-20 12:16] LABS: CH 33.1; CHCM 33.8; HCT 24.6 % (34.0-46.0); HDW 2.11; HGB 7.9 gm/dL (11.4-16.0); MCH 31.6 pg (25.0-35.0); MCHC 32.2 g/dL (31.0-37.0); MCV 98.2 fL (80.0-100.0); Mean Platelet Volume 9.3; RDW 12.1 % (11.5-15.5); WBC 3.5 k/uL (3.8-10.6)
[2016-08-20] MEDS: FERROUS SULFATE 325 MG TAB PO SCH (12:51)
[2016-08-20] MEDS: MINOXIDIL 10 MG TAB PO SCH (17:34)
[2016-08-20] MEDS: LEVOFLOXACIN 250 MG TAB PO SCH (17:43)
--- NOTE | 2016-08-20 17:44 | PN ---
Patient is seen for followup for acute kidney injury. Patient has history of uncontrolled hypertension as outpatient. She was admitted initially in [place] with a creatinine of about 6. Her creatinine continues to decline. She was maintained on IV fluids; however, her blood pressure was noted to be significantly low at about 102 mmHg last night and early this morning. Creatinine was 2.1 yesterday; today it is 2.6 mg/dL and patient is complaining of weakness. Her hemoglobin was 7.9 g/dL today. There has been no active bleeding noted. Iron studies were fairly adequate with iron saturation at 31%. Stool for occult blood is currently pending. On examination, blood pressure is 122/58, heart rate 80 per minute. She is afebrile. EXAMINATION OF THE HEART: S1 and S2. EXAMINATION OF THE LUNGS: Bilateral breath sounds are heard. Decreased breath sounds in the bases. ABDOMEN: Soft, nontender. Examination of lower extremities shows no evidence of edema. FISH FRYER exam is grossly intact. Labs show hemoglobin 7.9, sodium 137, potassium 4.0, BUN 47, serum creatinine 2.67. ASSESSMENT: 1. Acute kidney injury, acute tubular necrosis, currently improving; however, serum creatinine is higher today from yesterday, mainly secondary to decreased perfusion with low blood pressures and anemia as well. I will decrease the dose of Minoxidil due for tonight. We may actually need to hold it, as blood pressure remains on the lower side. 2. Acute kidney injury, currently improving, with recent rise in creatinine secondary to low blood pressure, as stated above. 3. Hypertension. Blood pressure is low. Decrease antihypertensive medications. 4. Anemia with no evidence of iron deficiency; awaiting stool for occult blood. 5. Dyslipidemia. PLAN: Encourage increased oral intake. Avoid dropping the blood pressure significantly below 130 to 125 mmHg systolic. Repeat CBC and BMP in a.m.
[2016-08-20 17:55] LABS: Appearance,Urine Cloudy (Clear); Bacteria,Urine Rare /hpf; Bilirubin,Urine Negative (Negative); Glucose,Urine (UA) Negative (Negative); Ketones,Urine Negative (Negative); Leukocyte Esterase,Urine Moderate (Negative); Mucus,Urine Rare /hpf; Nitrite,Urine Negative (Negative); PH, Urine 5.5 (5.0-8.0); Particle Count 5156; Protein,Urine Trace (Negative); RBC,Urine 1 /hpf (0-5); Squamous Epithelial Cell,Urine 9 /hpf (0-4); UA Billing (MACRO vs. MICRO) MICRO; Urobilinogen,Urine <2.0 mg/dL (<2.0); WBC,Urine 7 /hpf (0-5)
[2016-08-20] MEDS: cloNIDine HCL 0.1 MG TAB PO SCH (19:49)
[2016-08-20] MEDS: PRAVASTATIN SODIUM 20 MG TAB PO SCH (20:58)
[2016-08-20] MEDS: FAMOTIDINE 20 MG TAB PO SCH (20:59)
[2016-08-20] MEDS ORDERED: MINOXIDIL 10 MG TAB PO ONE (21:00)
--- NOTE | 2016-08-20 21:19 | CONS ---
DATE OF CONSULTATION: 08/20/2016 REASON FOR CONSULTATION: Anemia. HISTORY OF PRESENT ILLNESS: The patient is an 86-year-old pleasant lady who was admitted to the hospital with acute renal failure. She was transferred from [place] but the patient has been living in [place]. She was visiting her daughter and became weak, tired with shakiness all over her lower body and when she came into the emergency room she was noted to have acute renal failure with a creatinine of 6 mg/dL. A year ago her creatinine apparently was 0.8 g/dL. While in the hospital she was noted to have anemia and hence we are consulted in regards to this issue. Her hemoglobin was 8.6 yesterday. This morning it is down to 7.9 g/dL. She, however, denies any abdominal pain. Reports no nausea, vomiting. Denies any fever, chills, night sweats. Reports no prior history of peptic ulcer disease. She has been taking Aleve on and off for the last one year duration for arthritis. She recalls having a colonoscopy about 5 years ago, which was within normal limits. Her past medical history is significant for coronary artery disease, hypertension, hyperlipidemia, osteoarthritis. Medications at home include: 1. Diovan. 2. Hydralazine. 3. Minoxidil. 4. Norvasc. 5. Clonidine. 6. Coreg. 7. ( ) 8. Synthroid. 9. Bumex. 10. Pravachol. 11. Multivitamins. SOCIAL HISTORY: No smoking or alcohol use. FAMILY HISTORY: Unremarkable. PAST SURGICAL HISTORY: Appendectomy, adenoidectomy, bladder surgery, cholecystectomy, CABG, hysterectomy, tonsillectomy, aortic valve replacement. REVIEW OF SYSTEMS: CARDIOPULMONARY: No chest pain or shortness of breath. GENITOURINARY: No dysuria or hematuria. MUSCULOSKELETAL: Unremarkable. SKIN: Unremarkable. PSYCHIATRIC: Unremarkable. NEUROLOGY: Unremarkable. ENT: Vision: Unremarkable. CONSTITUTIONAL: No recent weight loss. No fever, chills, night sweats. On physical examination, she appears comfortable in no apparent distress. Vitals are stable. Blood pressure is 130/86, pulse rate 82, and afebrile. HEENT examination unremarkable. Conjunctivae pink. Sclerae anicteric. Oral cavity no lesions. NECK: No JVD or lymph node enlargement. Chest was clear to auscultation. HEART: Regular rate and rhythm. ABDOMEN: Soft. Bowel sounds are positive. No organomegaly. EXTREMITIES: No pedal edema. SKIN: No rashes. NEURO: Alert and oriented x2. No focal deficits. Labs from today: BUN is 47, creatinine 2.67, hemoglobin is 7.9, platelets are 95. WBC 3.5. ALT, AST, T-bili and alkaline phosphatase are all within normal limits. Ferritin is 283, iron is 80, TIBC 2549, iron saturation is 31.5, MCV is 100.5. IMPRESSION: This is a lady who was admitted to the hospital with acute renal failure and also noted to have macrocytic anemia and clinically no evidence of active gastrointestinal bleed. She in fact has mild pancytopenia with a platelet count 95,000 and WBC count of 3.5 thousand. No prior history of peptic ulcer disease and last colonoscopy about 5 years ago according to the patient was within normal limits. Iron indices did not show any evidence of iron deficient anemia and hence at this time it appears that most likely we are dealing with a multifactorial etiology possibly related to underlying renal insufficiency/anemia of chronic disease. No evidence of active ongoing bleeding. RECOMMENDATIONS: 1. We will await stool for occult blood. 2. Repeat CBC in the morning. 3. No plans on any endoscopic intervention at the present time but will follow her closely during her hospital stay. Thank you for this consultation.
[2016-08-20] MEDS: traZODone HCL 50 MG TAB PO SCH (22:26)
--- NOTE | 2016-08-20 22:57 | P.PN ---
Subjective This patient is a 86-year-old female who was admitted hospital for further treatment of acute renal failure and myoclonus. Patient was visiting her daughter in [place] when she developed some symptoms of myoclonus and confusion. She was taken to a local hospital and was found to have evidence of acute renal failure with elevated serum creatinine. She was subsequently admitted to the hospital for further management. She has been seen by nephrology who is monitoring her acute kidney injury. Her serum creatinine today is come down to 2.12. She did undergo routine EEG yesterday which was reviewed and reveals only mild slowing with no evidence of any epileptiform discharges. She also was sent for MRI of the brain and MRA yesterday as she is shown signs of mild memory lapses and deterioration. MRI of the brain reveals age-related atrophy and chronic small vessel ischemic changes. MRA of the brain was reported normal. We reviewed the results of all of her neurodiagnostic test today with the patient in detail. She is resting comfortably and does seem to be much more awake and alert today. She is following all commands. We will need to recheck her electrolytes tomorrow morning. We reviewed the EEG results with the patient today and she was happy of these results. The patient was more awake and alert yesterday. Today the patient seems to be very weak and slightly depressed. Daughter is at bedside today and states that she is being evaluated for severe anemia and possible GI bleed. Gastroenterology is following her now. Patient seems to be in the low mood and is not this alert today she was yesterday. Her hemoglobin today is 7.9. She may require a blood transfusion if her hemoglobin continues to drop. She may have the beginning of mild dementia which may be followed up in the outpatient clinic. Her overall prognosis at this time remains guarded. Objective - Vital Signs Vital signs: Vital Signs Temp 98.8 F 08/20/16 17:40 Pulse 76 08/20/16 19:49 Resp 16 08/20/16 17:40 BP 124/47 08/20/16 19:49 Pulse Ox 94 L 08/20/16 17:40 Intake & Output 08/20/16 08/20/16 08/21/16 06:59 18:59 06:59 Intake Total 200 Output Total 100 Balance 200 -100 Weight 74 kg Intake: Oral 200 Output: Urine 100 Other: # Voids 1 1 - Exam Physical examination: PHYSICAL EXAMINATION: Patient is resting comfortably in bed. VITAL SIGNS: Blood pressure is [115/55]. Heart rate is [69]. Respiration is [16] . Temperature is [98.8]. HEENT: Head is atraumatic, neck is supple, there were no carotid bruits. CHEST: Lungs are clear to auscultation and percussion. CARDIAC: S1, S2 normal rate and rhythm. There is no murmur. ABDOMEN: Soft and nontender. Bowel sounds are present. EXTREMITIES: There is no pedal edema. Peripheral pulses are present. Neurological examination: Patient has a nonfocal neurological examination today. - Labs CBC & Chem 7: 08/20/16 07:34 08/20/16 07:34 Labs: Abnormal Lab Results - Last 24 Hours (Table) 08/17/16 08/20/16 08/20/16 Range/Units 15:09 07:34 07:34 WBC 3.5 L (3.8-10.6) k/uL RBC 2.50 L (3.80-5.40) m/uL Hgb 7.9 L (11.4-16.0) gm/dL Hct 24.6 L (34.0-46.0) % Plt Count 95 L (150-450) k/uL BUN 47 H (7-17) mg/dL Creatinine 2.67 H (0.52-1.04) mg/dL Renin Direct 461.0 H (3.1 - 57.1) pg/mL Urine Appearance (Clear) Urine Protein (Negative) Ur Leukocyte Esterase (Negative) Urine WBC (0-5) /hpf Ur Squamous Epith Cells (0-4) /hpf Urine Bacteria (None) /hpf Hyaline Casts (0-2) /lpf Urine Mucus (None) /hpf 08/20/16 Range/Units 17:27 WBC (3.8-10.6) k/uL RBC (3.80-5.40) m/uL Hgb (11.4-16.0) gm/dL Hct (34.0-46.0) % Plt Count (150-450) k/uL BUN (7-17) mg/dL Creatinine (0.52-1.04) mg/dL Renin Direct (3.1 - 57.1) pg/mL Urine Appearance Cloudy H (Clear) Urine Protein Trace H (Negative) Ur Leukocyte Esterase Moderate H (Negative) Urine WBC 7 H (0-5) /hpf Ur Squamous Epith Cells 9 H (0-4) /hpf Urine Bacteria Rare H (None) /hpf Hyaline Casts 144 H (0-2) /lpf Urine Mucus Rare H (None) /hpf Assessment and Plan (1) Acute encephalopathy Status: Acute Code(s): G93.40 - ENCEPHALOPATHY, UNSPECIFIED (2) Delirium Status: Acute Code(s): R41.0 - DISORIENTATION, UNSPECIFIED (3) Essential hypertension Status: Acute Code(s): I10 - ESSENTIAL (PRIMARY) HYPERTENSION (4) Acute renal failure Status: Acute Code(s): N17.9 - ACUTE KIDNEY FAILURE, UNSPECIFIED Plan: This patient is a 86-year-old female initially admitted to hospital with tremors and possible acute renal failure. Patient had symptoms suggesting myoclonus. She underwent a MRI and MRA of the brain results which were reviewed once again today. MRI failed to reveal any evidence of acute stroke. MRA was negative for any aneurysm. Patient today is noted to be slightly weak and slightly obtunded. She apparently has been very depressed about her overall medical health. We reviewed the MRI/MRA results today with the patient. Her daughter was at bedside today and states that she is being treated for acute anemia. Her hemoglobin and dropped to 7.9. We will await further recommendations from the specialist. Overall the patient seems to be doing fairly well up until today. She does seem to be slightly depressed. We will continue close neurological follow-up the patient during this admission.
[2016-08-21] MEDS: LEVOTHYROXINE 75 MCG TAB PO SCH (06:14)
[2016-08-21] MEDS: ALBUTEROL NEBULIZED 2.5 MG/3 ML INHALATION SCH ×4 (07:45→19:11)
[2016-08-21] MEDS: FERROUS SULFATE 325 MG TAB PO SCH (08:48)
[2016-08-21] MEDS: MULTIVITAMINS, THERA 1 EACH TAB PO SCH (08:48)
[2016-08-21] MEDS: BUMETANIDE 0.5 MG TABLET PO SCH (08:48)
[2016-08-21] MEDS: VALSARTAN 80 MG TAB PO SCH (08:48)
[2016-08-21] MEDS: CARVEDILOL 6.25 MG TAB PO SCH ×2 (08:48→17:13)
[2016-08-21] MEDS: HEPARIN SODIUM,PORCINE 5,000 UNIT/ML 1 ML VIAL SQ SCH ×3 (08:48→23:33)
[2016-08-21] MEDS: hydrALAZINE HCL 25 MG TAB PO SCH (08:49)
[2016-08-21] MEDS ORDERED: hydrALAZINE HCL 50 MG TAB PO SCH (09:00)
[2016-08-21 09:47] LABS: CH 32.7; CHCM 33.2; HDW 2.11; HGB 8.9 gm/dL (11.4-16.0); MCH 32.4 pg (25.0-35.0); MCHC 32.9 g/dL (31.0-37.0); MCV 98.7 fL (80.0-100.0); Mean Platelet Volume 8.5; RBC 2.74 m/uL (3.80-5.40); RDW 12.5 % (11.5-15.5); WBC 4.1 k/uL (3.8-10.6)
[2016-08-21 10:31] LABS: Calcium 8.8 mg/dL (8.4-10.2); Potassium 4.1 mmol/L (3.5-5.1); Total Bilirubin 0.5 mg/dL (0.2-1.3); Total Protein 5.7 g/dL (6.3-8.2)
--- NOTE | 2016-08-21 12:30 | P.PN ---
Subjective Principal diagnosis: Anemia 86-year-old female reevaluated today in regards to anemia. Denies hematemesis hematochezia or melena. Admitted with acute renal failure. Hemoglobin 8.9. Denies abdominal pain. Stool Hemoccult pending. Bowel movement 1 appeared brown in nature. Creatinine 2.7 nephrology following. Objective - Vital Signs Vital signs: Vital Signs Temp 98.9 F 08/21/16 07:00 Pulse 74 08/21/16 07:57 Resp 17 08/21/16 07:00 BP 138/72 08/21/16 07:00 Pulse Ox 96 08/21/16 07:00 Intake & Output 08/20/16 08/21/16 08/21/16 18:59 06:59 18:59 Output Total 100 Balance -100 Weight 75 kg Output: Urine 100 Other: # Voids 1 2 - Exam General appearance: The patient is alert, oriented, in no acute distress. HET: Head is normocephalic and atraumatic. Pupils are equal and reactive. Oropharynx is clear without lesions. Neck: Supple without lymphadenopathy. Trachea midline. Heart: S1 S2. Regular rate and rhythm. Lungs: No crackles or wheezes are heard. Abdomen: Soft, nontender, nondistended with bowel sounds. No peritoneal signs. No palpable organomegaly or masses. Extremities: Normal skin color and turgor. No cyanosis, rash, ulceration, clubbing, or edema. Radial and pedal pulses are 2/4 bilaterally. Neurological: No focal deficits. Strength and sensation are grossly intact. - Labs CBC & Chem 7: 08/21/16 09:19 08/21/16 09:19 Labs: Abnormal Lab Results - Last 24 Hours (Table) 08/17/16 08/20/16 08/20/16 Range/Units 15:09 07:34 17:27 WBC 3.5 L (3.8-10.6) k/uL RBC 2.50 L (3.80-5.40) m/uL Hgb 7.9 L (11.4-16.0) gm/dL Hct 24.6 L (34.0-46.0) % Plt Count 95 L (150-450) k/uL Renin Direct 461.0 H (3.1 - 57.1) pg/mL Urine Appearance Cloudy H (Clear) Urine Protein Trace H (Negative) Ur Leukocyte Esterase Moderate H (Negative) Urine WBC 7 H (0-5) /hpf Ur Squamous Epith Cells 9 H (0-4) /hpf Urine Bacteria Rare H (None) /hpf Hyaline Casts 144 H (0-2) /lpf Urine Mucus Rare H (None) /hpf 08/21/16 Range/Units 09:19 WBC (3.8-10.6) k/uL RBC 2.74 L (3.80-5.40) m/uL Hgb 8.9 L (11.4-16.0) gm/dL Hct 27.0 L (34.0-46.0) % Plt Count 103 L (150-450) k/uL Renin Direct (3.1 - 57.1) pg/mL Urine Appearance (Clear) Urine Protein (Negative) Ur Leukocyte Esterase (Negative) Urine WBC (0-5) /hpf Ur Squamous Epith Cells (0-4) /hpf Urine Bacteria (None) /hpf Hyaline Casts (0-2) /lpf Urine Mucus (None) /hpf Assessment and Plan (1) Anemia Narrative/Plan: Macrocytic anemia with mild pancytopenia. Multifactorial etiology possibly related to underlying renal insufficiency possible anemia of chronic disease. No evidence of active ongoing bleeding at this time. Status: Acute (2) Acute renal failure Status: Acute Plan: 1. Await stool for occult blood testing. 2. Diet as tolerated. We'll continue to follow. Assessment and plan of care discussed with Dr. Zimmer.
--- NOTE | 2016-08-21 14:02 | P.CN ---
Psychiatric Consult - . Consult date: 08/21/16 Consult:: 08/21/16 13:47 DATE OF SERVICE: 08/21/2016 IDENTIFYING DATA: This patient is a 86-year-old [id number] admitted for acute renal failure. Consulted for assessment of depression. HISTORY OF PRESENT ILLNESS: The patient reports that she went to visit her son in [place], and became ill and was hospitalized. Once stabilized [place] was [place]. She reports that she might have appeared to process the other day because she was tired of the 4 days of rain and clouds. Denies any depression today or in her past. Gave me history of her medical problems and that she has survived many difficult problems including cancer. She reports that she is in a happy marriage, and her is very wonderful and supportive. She states she has 2 children one son and one daughter, and that they live in between them although one is in [place]. PAST PSYCHIATRIC HISTORY: Patient denies any past history of psychiatric illness , denies suicidal ideation in the past or suicidal attempts. Denies any psychiatric hospitalizations. PAST MEDICAL HISTORY: Currently she is being treated for acute renal failure and anemia. ALLERGIES: Hydromorphone. CHEMICAL DEPENDENCY HISTORY: Denies. FAMILY PSYCHIATRIC HISTORY: Denies. FAMILY CHEMICAL DEPENDENCY HISTORY: Denies. SOCIAL HISTORY: She states she is the youngest of 10 children, all of her brothers and sisters are . Says that she does not dwell on the sadness at that that thinks about their wonderful life on the farm. Says that her mother lived 3 days shy of her 89 birthday always eating all the farm food. 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 No history of abuse.. MENTAL STATUS EXAM: Patient is sitting up in bed, greeted me when I entered her room, bright affect. Good eye contact, well groomed in hospital attire. Alert and oriented to current setting, year, month. Speech normal volume, rate and production No REINA, FOI, no delusions or IOR. No auditory hallucinations, no visual hallucinations. No suicidal ideation, no homicidal ideation. Mood euthymic, affect full range, normal intensity, congruent with mood. IMPRESSIONS: Pleasant 86 year old female with multiple metabolic abnormalties that could cause a change in cognition, memory and mood but she is not displaying any symptoms today. PLAN: . No psychiatric intervention indicated. I will follow along.
[2016-08-21 15:38] VITALS: RESP 19
[2016-08-21] MEDS: LEVOFLOXACIN 250 MG TAB PO SCH (17:13)
--- NOTE | 2016-08-21 18:37 | PN ---
CHIEF COMPLAINT: Renal failure and delirium. HISTORY OF PRESENT ILLNESS: This lady is doing well and feeling well, but her hemoglobin has dropped, and this is being watched. There is no sign of any bleeding. PHYSICAL EXAMINATION: She is awake and alert. She seems to be more pale. Head, ears, eyes, nose, mouth and throat are normal. The chest is clear. Cardiac exam is unchanged. The abdomen is soft, nontender. IMPRESSION: 1. Renal failure. 2. Delirium. 3. Anemia. PLAN: 1. Work up anemia. 2. Continue to follow renal function. 3. Continue with physical therapy to increase activity and independence.
--- NOTE | 2016-08-21 20:06 | P.PN ---
Subjective This patient is a pleasant 86-year-old female being evaluated for recent episode of confusion and tremors. Patient was admitted with evidence of acute renal failure. Yesterday she was also noted to have evidence of acute anemia. Her hemoglobin and dropped and gastroenterology is following the patient now. She has been started on iron supplementation. Patient is doing much better today and is more awake and alert. She is following all commands. Yesterday she seemed to be slightly depressed and withdrawn. Psychiatry was consulted today and they find no evidence of underlying psychiatric problems for the patient at this time. GI is monitoring her hemoglobin levels closely. We will await further recommendations. Patient and her daughter and are bedside. They have noted improvement in her mental status today. We will continue to follow her progress closely during this admission. Objective - Vital Signs Vital signs: Vital Signs Temp 97.6 F 08/21/16 15:00 Pulse 72 08/21/16 19:24 Resp 19 08/21/16 15:00 BP 139/62 08/21/16 15:00 Pulse Ox 95 08/21/16 15:00 Intake & Output 08/21/16 08/21/16 08/22/16 06:59 18:59 06:59 Weight 75 kg Other: # Voids 2 3 - Exam Physical examination: PHYSICAL EXAMINATION: Patient is resting comfortably in bed. VITAL SIGNS: Blood pressure is [139/62]. Heart rate is [72]. Respiration is [19] . Temperature is [97.7]. HEENT: Head is atraumatic, neck is supple, there were no carotid bruits. CHEST: Lungs are clear to auscultation and percussion. CARDIAC: S1, S2 normal rate and rhythm. There is no murmur. ABDOMEN: Soft and nontender. Bowel sounds are present. EXTREMITIES: There is no pedal edema. Peripheral pulses are present. Neurological examination: Patient has a nonfocal neurological examination today. - Labs CBC & Chem 7: 08/21/16 09:19 08/21/16 09:19 Labs: Abnormal Lab Results - Last 24 Hours (Table) 08/21/16 08/21/16 Range/Units : 09:19 RBC 2.74 L (3.80-5.40) m/uL Hgb 8.9 L (11.4-16.0) gm/dL Hct 27.0 L (34.0-46.0) % Plt Count 103 L (150-450) k/uL Sodium 136 L (137-145) mmol/L Carbon Dioxide 21 L (22-30) mmol/L BUN 47 H (7-17) mg/dL Creatinine 2.75 H (0.52-1.04) mg/dL Glucose 138 H (74-99) mg/dL Alkaline Phosphatase 35 L (38-126) U/L Total Protein 5.7 L (6.3-8.2) g/dL Albumin 3.2 L (3.5-5.0) g/dL Assessment and Plan (1) Acute encephalopathy Status: Acute Code(s): G93.40 - ENCEPHALOPATHY, UNSPECIFIED (2) Delirium Status: Acute Code(s): R41.0 - DISORIENTATION, UNSPECIFIED (3) Essential hypertension Status: Acute Code(s): I10 - ESSENTIAL (PRIMARY) HYPERTENSION (4) Acute renal failure Status: Acute Code(s): N17.9 - ACUTE KIDNEY FAILURE, UNSPECIFIED Plan: This patient is a pleasant 86-year-old female initially admitted with episode of confusion and tremors. She has been evaluated for any evidence for underlying seizure disorder and her EEG was negative for seizure focus. She underwent MRI/MRA of the brain both of which were unremarkable. She was seen by psychiatry today as yesterday she appeared to be very depressed. Today she is bright and very alert and talkative. She seems to be back to her normal baseline level of function. Psychiatry did not feel she had any concerning psychiatric issues at this time. Neurologically she remains intact. We will continue to follow her progress closely during this admission. Case was discussed at length with the patient as well as her daughter and at bedside. All their questions were answered. Her overall prognosis at this time remains fair. We will continue to follow her progress closely during this admission.
--- NOTE | 2016-08-21 20:40 | PN ---
Patient is seen for followup for acute kidney injury. Her renal function has deteriorated slightly and this is most likely secondary to hypotension and hypoperfusion. Her blood pressure medications have been decreased and more recently blood pressure has been in the 130 range for systolic blood pressure. Patient states she is feeling slightly better. Heart rate about 72 to 74 per minute. She is afebrile. She has been voiding fairly well. EXAMINATION OF THE HEART: S1 and S2. EXAMINATION OF THE LUNGS: Bilateral breath sounds are heard. Decreased breath sounds in the bases. No crackles or wheezing is heard. ABDOMEN: Soft, nontender. Examination of lower extremities shows no evidence of edema. VENIPUNCTURIST exam is grossly intact. Labs show sodium 136, potassium 4.1, BUN 47, serum creatinine 2.75. Hemoglobin 8.9 g/dL. ASSESSMENT: 1. Acute kidney injury. Renal function had been improving with creatinine down to about 2.1 mg/dL from 6 when she was initially admitted in [place]. Serum creatinine did start to go up to 2.6, and it is at 2.7; this is secondary to her low blood pressure. Medications have been adjusted. I will discontinue the Diovan for now and will try to keep her systolic around 130 mmHg. Avoid low systolic blood pressures of 110 and 100 mmHg. No nephrotoxic agents are on board at this time. 2. Anemia with no active bleeding noted. Stool for occult blood was negative. There was no significant iron deficiency noted. Iron saturation was 31%. Ferritin was 283. PLAN: Hold Diovan. Patient could be discharged today. We will follow her up as outpatient in one week's time. Hydralazine has been decreased. Most likely I will discontinue the hydralazine, depending on her blood pressure over the next few days.
[2016-08-21] MEDS: cloNIDine HCL 0.1 MG TAB PO SCH (20:57)
[2016-08-21] MEDS: traZODone HCL 50 MG TAB PO SCH (20:57)
[2016-08-21] MEDS ORDERED: FAMOTIDINE 20 MG TAB PO SCH (21:00)
[2016-08-21] MEDS ORDERED: MINOXIDIL 10 MG TAB PO SCH (21:00)
[2016-08-21] MEDS: PRAVASTATIN SODIUM 20 MG TAB PO SCH (22:04)
--- NOTE | 2016-08-21 22:54 | PN ---
DATE OF SERVICE: 08/21/2016 CHIEF COMPLAINT: Delirium, hypertension and renal failure. HISTORY OF PRESENT ILLNESS: This lady is doing reasonably well, but she has been expressing an interest in dying. She denies depression. She has asked that she not be resuscitated. PHYSICAL EXAMINATION: She remains slightly pale. Chest is clear. Cardiac exam is normal. Abdomen is soft, nontender. IMPRESSION: 1. Delirium. 2. Renal failure. 3. Diabetes. 4. Possible depression. 5. Anemia. PLAN: 1. Follow hemoglobin. 2. Continue to monitor her renal monitor. 3. Increase activity. 4. Psychiatric consult.
[2016-08-22] MEDS: LEVOTHYROXINE 75 MCG TAB PO SCH (06:33)
[2016-08-22 07:24] VITALS: BP 125/57; TEMP 97.9
[2016-08-22] MEDS: ALBUTEROL NEBULIZED 2.5 MG/3 ML INHALATION SCH ×2 (07:32→11:34)
--- NOTE | 2016-08-22 08:27 | P.PN ---
Subjective Principal diagnosis: Anemia Hemoglobin 8.9 yesterday. Hemoccult testing negative. Denies hematemesis hematochezia melena. Denies abdominal pain. Afebrile. Objective - Vital Signs Vital signs: Vital Signs Temp 97.9 F 08/22/16 07:00 Pulse 64 08/22/16 07:46 Resp 19 08/22/16 07:00 BP 125/57 08/22/16 07:00 Pulse Ox 96 08/22/16 07:00 Intake & Output 08/21/16 08/22/16 08/22/16 18:59 06:59 18:59 Weight 73.5 kg Other: Voiding Method Toilet Bedside Commode # Voids 3 3 1 - Exam General appearance: The patient is alert, oriented, in no acute distress. HET: Head is normocephalic and atraumatic. Pupils are equal and reactive. Oropharynx is clear without lesions. Neck: Supple without lymphadenopathy. Trachea midline. Heart: S1 S2. Regular rate and rhythm. Lungs: No crackles or wheezes are heard. Abdomen: Soft, nontender, nondistended with bowel sounds. No peritoneal signs. No palpable organomegaly or masses. Extremities: Normal skin color and turgor. No cyanosis, rash, ulceration, clubbing, or edema. Radial and pedal pulses are 2/4 bilaterally. Neurological: No focal deficits. Strength and sensation are grossly intact. - Labs CBC & Chem 7: 08/21/16 09:19 08/21/16 09:19 Labs: Abnormal Lab Results - Last 24 Hours (Table) 08/21/16 08/21/16 Range/Units 09:19 09:19 RBC 2.74 L (3.80-5.40) m/uL Hgb 8.9 L (11.4-16.0) gm/dL Hct 27.0 L (34.0-46.0) % Plt Count 103 L (150-450) k/uL Sodium 136 L (137-145) mmol/L Carbon Dioxide 21 L (22-30) mmol/L BUN 47 H (7-17) mg/dL Creatinine 2.75 H (0.52-1.04) mg/dL Glucose 138 H (74-99) mg/dL Alkaline Phosphatase 35 L (38-126) U/L Total Protein 5.7 L (6.3-8.2) g/dL Albumin 3.2 L (3.5-5.0) g/dL Assessment and Plan (1) Anemia Narrative/Plan: Macrocytic anemia with mild pancytopenia. Multifactorial etiology possibly related to underlying renal insufficiency possible anemia of chronic disease. No evidence of active ongoing bleeding at this time. Status: Acute (2) Acute renal failure Status: Acute Plan: 1. No further workup. Patient was advised by Dr. Zimmer to follow up in the outpatient setting 1-2 weeks after discharge for reevaluation of anemia and possible outpatient colonoscopy EGD. 2. We'll follow as needed. Assessment and plan a care discussed with Dr. Zimmer.
[2016-08-22 08:35] LABS: CH 32.6; CHCM 33.2; HCT 29.2 % (34.0-46.0); HGB 9.9 gm/dL (11.4-16.0); MCH 33.5 pg (25.0-35.0); MCV 98.5 fL (80.0-100.0); Mean Platelet Volume 8.2; RBC 2.96 m/uL (3.80-5.40); RDW 12.5 % (11.5-15.5); WBC 3.7 k/uL (3.8-10.6)
[2016-08-22 09:07] LABS: Potassium 4.3 mmol/L (3.5-5.1)
[2016-08-22] MEDS: hydrALAZINE HCL 25 MG TAB PO SCH (09:29)
[2016-08-22] MEDS: HEPARIN SODIUM,PORCINE 5,000 UNIT/ML 1 ML VIAL SQ SCH (09:29)
[2016-08-22] MEDS: CARVEDILOL 6.25 MG TAB PO SCH (09:30)
[2016-08-22] MEDS: FERROUS SULFATE 325 MG TAB PO SCH (09:30)
[2016-08-22] MEDS: MULTIVITAMINS, THERA 1 EACH TAB PO SCH (09:30)
[2016-08-22] MEDS: BUMETANIDE 0.5 MG TABLET PO SCH (09:30)
[2016-08-22 11:37] VITALS: PULSE 72
--- NOTE | 2016-08-22 12:50 | P.DS ---
Providers Date of admission: 08/16/16 15:16 Expected date of discharge: 08/22/16 Attending physician: Taj White Consults: 08/16/16 15:50 Consult Physician Urgent Consulting Provider: Varsha Castillo Consult Reason/Comments: renal Do you want consulting provider notified?: Yes 08/17/16 09:02 Consult Physician Stat Consulting Provider: gM Blackmon Consult Reason/Comments: Confusion Do you want consulting provider notified?: Yes 08/21/16 11:28 Consult Physician Routine Consulting Provider: Jewell Matt Consult Reason/Comments: depression Do you want consulting provider notified?: Yes Primary care physician: Taj White [facility] Course: This patient is a pleasant 86-year-old right-handed white female who was visiting her daughter in [place]. Apparently yesterday she was noted by her daughter is having change in mentation as well as jerky movements of the upper extremities. She was taken to a hospital in [place] where she was evaluated. Apparently her laboratory testing revealed her to have evidence of acute renal failure. Her serum creatinine was high at 6.0. She was started on some fluids and then was discharged and was admitted to [facility] yesterday for further ongoing management and treatment. The patient was admitted through the emergency room. She did undergo a renal ultrasound which was nondiagnostic. No evidence of renal stones or hydronephrosis. Patient had repeat laboratory testing today and shows that her creatinine is much improved at 2.6 today. Nephrology has been consulted for further evaluation and treatment. Patient does have a history of essential hypertension and has been on 2 antihypertensive medications. According to the patient blood pressure has been up and down. She does have a history of coronary artery disease and has undergone coronary artery bypass surgery in the past as well. The patient denies any previous history of seizures or head trauma. Her recent jerking movements were very isolated and she has not had that since admission to the hospital. According to the patient she has noted some shakiness in her hands which seems to come and go. This is been present for the last few weeks. Her primary care physician Dr. White has admitted her and is now ordered for MRI of the brain and MRA for further evaluation which were done and they were unremarkable. Patient does have symptoms of mild delirium which seems to be improving. This may be more related to a diffuse metabolic encephalopathy from renal failure. Patient was followed closely by nephrology service. Patient did receive a dose of IV Lasix was switched over to Bumex. Patient had no chest pain no shortness of breath. Renal status continued to improve additionally patient's hemoglobin dropped and a gastroenterology consultation was requested. Patient was started on IV supplements. Patient was more awake and more alert and following commands. Stool for occult blood was negative. GI service indicated that there was no further GI workup at this time patient could be followed by Dr. Keene in the outpatient setting in 2 weeks. They could workup the anemia for possible outpatient colonoscopy could be an EGD could be arranged Patient had expressed feeling depressed to the nursing staff psychiatric eval was requested. Patient had no suicidal ideation the was no prior suicide attempt there is no and no prior treatment for depression or psychiatric service indicated there was no further workup at this time Nephrology on the day of discharge indicated to hold the Diovan. They would follow patient in the outpatient setting. Hydroxyl he would be decreased and most likely discontinued depending on the blood pressure readings over the next up days this could be evaluated in the outpatient setting Will consulting physicians patient was appropriate to be discharged home Impression discharge diagnosis Acute metabolic encephalopathy present on admission likely due to acute renal failure resolved Present on admission macrocytic anemia with mild pancytopenia Present on admission acute renal failure Nonoliguric acute kidney injury mostly prerenal in nature related to poor oral intake. . Creatinine on the 2.24 Metabolic acidosis secondary to acute kidney injury and IV fluids. Improved. . Hypertension. Patient maintained on multiple antihypertensives as an outpatient. Acute metabolic Encephalopathy related to uremia. Resolved. Present on admission acute delirium disorientation unspecified The above dictated assessment and findings were discussed with dr white . Impression and the plan of care have been dictated as directed. Karlie Bartholomew nurse practitioner acting as a scribe for dr white Plan - Discharge Summary New Discharge Prescriptions: Ferrous Sulfate [Iron (65 MG Elemental)] 325 mg PO W/LUNCH #30 tab hydrALAZINE HCL [Apresoline] 25 mg PO DAILY #30 tab Discharge Medication List Bumetanide [BUMEX] 0.5 mg PO DAILY 08/16/16 [History] Carvedilol [Coreg] 6.25 mg PO BID 08/16/16 [History] Levothyroxine Sodium [Synthroid] 150 mcg PO DAILY 08/16/16 [History] Minoxidil [Loniten] 10 mg PO HS 08/16/16 [History] Multivitamins, Thera [Multivitamin (formulary)] 1 tab PO DAILY 08/16/16 [History ] Nitroglycerin Sl Tabs [Nitrostat] 0.4 mg SUBLINGUAL Q5M PRN 08/16/16 [History] Pravastatin Sodium [Pravachol] 10 mg PO HS 08/16/16 [History] Zopiclone 7.5 mg PO HS 08/16/16 [History] cloNIDine HCL [Catapres] 0.3 mg PO HS 08/16/16 [History] traZODone HCL [Desyrel] 50 mg PO HS 08/16/16 [History] Ferrous Sulfate [Iron (65 MG Elemental)] 325 mg PO W/LUNCH #30 tab 08/22/16 [Rx] hydrALAZINE HCL [Apresoline] 25 mg PO DAILY #30 tab 08/22/16 [Rx] Follow up Appointment(s)/Referral(s): Varsha Castillo MD [STAFF PHYSICIAN] - 1 Week (Have BMP checked prior to visit. ) Leigh Ann Zimmer MD [STAFF PHYSICIAN] - 1 Week [facility] Visiting Nurse, [NON-STAFF] - As Needed Taj White MD [Primary Care Provider] - 08/24/16 Ambulatory/Diagnostic Orders: Comprehensive Metabolic Panel [LAB.AMB] Time Frame: 08/27/16, Location: Determined By Patient Activity/Diet/Wound Care/Special Instructions: Monitor blood pressure at home and record readings to take to follow-up appointments. Discharge Disposition: HOME SELF-CARE
--- NOTE | 2016-08-22 16:03 | PN ---
Patient is seen for followup for acute kidney injury. Her renal function has improved with improved blood pressure readings. She is not running low anymore. Her systolic has been about 130 to 139 mmHg. Renal function has improved with creatinine now at about 2.1 mg/dL from 2.75 yesterday. Patient can be discharged. She will follow up as outpatient in about 1 week's time. On examination, blood pressure was l57/57 last night. This morning it 125/57. Heart rate 64 per minute. She is afebrile. EXAMINATION OF THE HEART: S1 and S2. EXAMINATION OF THE LUNGS: Bilateral breath sounds are heard. ABDOMEN: Soft, nontender. Examination of the lower extremities shows no significant edema. Labs show sodium of 137, potassium 4.3, BUN 44, serum creatinine 2.16. Hemoglobin 9.9 g/dL. ASSESSMENT: 1. Acute kidney injury, acute tubular necrosis, currently improving. ( ) rising creatinine during recovery was secondary to significantly low blood pressure readings. This has improved, with creatinine now down to 2.16 from 2.7 yesterday. 2. Hypertension. Blood pressure readings are now improved ( ) the hydralazine as outpatient. Currently patient is maintained on Minoxidil 10 mg at night, clonidine 0.3 mg at bedtime and hydralazine 25 mg daily. I will discontinue the hydralazine and work on trying to decrease the clonidine down the road. The angiotensin receptor blockers are currently on hold. We can likely resume that as outpatient once renal function improves further.
--- NOTE | 2016-08-23 15:13 | PN ---
DATE OF SERVICE: 08/22/2016 CHIEF COMPLAINT: Renal failure and delirium. HISTORY OF PRESENT ILLNESS: This lady is doing much better and renal function is improving. Her mentation is greatly improved. She may be able to go home today. PHYSICAL EXAM: Her chest is clear and cardiac exam is normal. The abdomen is soft and nontender and extremities are normal. IMPRESSION: 1. Renal failure-resolving. 2. Delirium. 3. Anemia. 4. History of carcinoma of the left breast. PLAN: Possibly home today and this will be arranged by the nurse practitioner.
== END 2016-08-22 14:19 | disposition home health service (06) | DRG 682 ==
LOC: 4MS4W 08-16 15:16
PROVIDERS: ADMIT Family Medicine; ATTEND Family Medicine
DX: N17.0 Acute kidney failure with tubular necrosis (principal); G93.41 Metabolic encephalopathy; E87.2 Acidosis; D61.818 Other pancytopenia; I11.0 Hypertensive heart disease with heart failure; I50.9 Heart failure, unspecified; E11.9 Type 2 diabetes mellitus without complications; D53.9 Nutritional anemia, unspecified; F03.90 Unspecified dementia, unspecified severity, without behavioral disturbance, psychotic disturbance, mood disturbance, and anxiety; G25.3 Myoclonus; F32.9 Major depressive disorder, single episode, unspecified; E03.9 Hypothyroidism, unspecified; E78.5 Hyperlipidemia, unspecified; I25.10 Atherosclerotic heart disease of native coronary artery without angina pectoris; M19.90 Unspecified osteoarthritis, unspecified site; Z79.899 Other long term (current) drug therapy; Z85.3 Personal history of malignant neoplasm of breast; Z90.12 Acquired absence of left breast and nipple; Z95.1 Presence of aortocoronary bypass graft; Z95.2 Presence of prosthetic heart valve
CPT/HCPCS: 70544; 70551; 71020; 76770; 80048; 80053; 80061; 81001; 82088; 82272; 82728; 83540; 83550; 84244; 85025; 85027; 87077; 87086; 87186; 93880; 94640; 95819

== ENCOUNTER → 2017-01-03 | Outpatient (CLI) | payer MEDICARE ==
--- NOTE | 2017-01-03 10:42 | US ---
EXAMINATION TYPE: US renal artery duplex complete DATE OF EXAM: 01/03/2017 COMPARISON: NONE CLINICAL HISTORY: 86-year-old female I10 HTN. HTN for many years TECHNIQUE: Multiple sonographic images of the kidneys were obtained. Color Doppler and spectral wavef orm analysis of the renal arteries. FINDINGS: The screw machine operator measured the proximal aorta at only 1 cm in the mid abdominal aorta 1.7 cm. Trace perihepatic ascites. No hydronephrosis on either side. MEASUREMENTS: RENAL SIZE: Rt Kidney: 9.8 x 4.0 x 4.1cm Lt Kidney: 9.9 x 4.0 x 4.6cm RESISTANCE INDEX Right: 0.76 Left: 0.58 RA/AO RATIO (< 3.5 ) Right: 0.5 Left: 0.9 RA VELOCITY ( < 180 cm/s) Right: 85.9cm/s Left: 153.8cm/s Mid aortic peak systolic velocity: 164 cm/s. Just above still within the mid abdominal aorta, peak sy stolic velocity measures up to 255 cm/s. Calcifications noted bilateral kidneys (possibly vascular). Atherosclerotic calcifications noted thro ughout aorta. Increased velocities mid aorta. Small amount of free fluid noted RUQ adjacent to liver. No evidence of renal artery stenosis. Difficult to visualize (poor) upstrokes at segmentals at hilum bilaterally. IMPRESSION: 1. No hydronephrosis. 2. No Doppler evidence for renal artery stenosis. 3. Some of the measured velocities in the mid abdominal aorta appear elevated and the screw machine operator aliza sures the proximal abdominal aorta and 1 cm. Consider contrast-enhanced CT of the abdomen to exclude any abnormal aortic stenosis. 4. Trace perihepatic ascites. Clinically correlate.
[2017-01-03 12:21] LABS: Total Bilirubin 0.7 mg/dL (0.2-1.3); Total Protein 6.2 g/dL (6.3-8.2)
== END | disposition home or self-care (01) ==
LOC: RADUSMAIN 08:00
PROVIDERS: ATTEND Internal Medicine Nephrology
DX: R93.1 Abnormal findings on diagnostic imaging of heart and coronary circulation (principal); I12.9 Hypertensive chronic kidney disease with stage 1 through stage 4 chronic kidney disease, or unspecified chronic kidney disease; N17.9 Acute kidney failure, unspecified
CPT/HCPCS: 80053; 93975

== ENCOUNTER → 2017-01-10 | Outpatient (CLI) | payer MEDICARE ==
[2017-01-10 15:35] LABS: CH 32.4; CHCM 32.9; HCT 29.8 % (34.0-46.0); HDW 2.13; MCH 32.7 pg (25.0-35.0); MCHC 33.1 g/dL (31.0-37.0); MCV 98.9 fL (80.0-100.0); Mean Platelet Volume 9.1; RBC 3.01 m/uL (3.80-5.40); RDW 13.6 % (11.5-15.5); WBC 3.8 k/uL (3.8-10.6)
[2017-01-10 15:36] LABS: HGB 9.9 gm/dL (11.4-16.0)
[2017-01-10 15:56] LABS: Calcium 9.2 mg/dL (8.4-10.2); Potassium 4.7 mmol/L (3.5-5.1); Total Bilirubin 0.5 mg/dL (0.2-1.3); Total Protein 6.6 g/dL (6.3-8.2)
[2017-01-10 18:25] LABS: Iron Saturation 15.67 (12.00-45.00)
== END | disposition home or self-care (01) ==
LOC: LABWHC1 14:38
PROVIDERS: ATTEND Nurse Practitioner Family
DX: N17.9 Acute kidney failure, unspecified (principal); N18.9 Chronic kidney disease, unspecified; D64.9 Anemia, unspecified
CPT/HCPCS: 36415; 80053; 82728; 83540; 83550; 85027